=== PATIENT | male | born 1980 | race Caucasian/White ===

== ENCOUNTER 2023-12-29 21:30 | Emergency (ER) | payer MEDICAID ==
[~2023-12-29] VITALS: Ht 175.3 cm; Wt 76.4 kg
[2023-12-29 21:36] VITALS: BP 133/89; PULSE 70; RESP 18; TEMP 98; O2SAT 96
[2023-12-29] MEDS: KETOROLAC 60 MG/2 ML VIAL IM ONE (22:19)
[2023-12-29 22:35] VITALS: BP 133/89; PULSE 70; RESP 18; TEMP 98; O2SAT 96
== END 2023-12-29 22:35 | disposition home or self-care (01) ==
LOC: MED 21:30
DX: S00.01XA Abrasion of scalp, initial encounter (principal); M54.2 Cervicalgia; Z98.890 Other specified postprocedural states; W01.198A Fall on same level from slipping, tripping and stumbling with subsequent striking against other object, initial encounter; Y92.89 Other specified places as the place of occurrence of the external cause; Y93.89 Activity, other specified; Y99.8 Other external cause status
CPT/HCPCS: 96372; 99283; J1885